=== PATIENT | male | born 1960 | race Caucasian/White ===

== ENCOUNTER 2023-06-21 06:18 | Day surgery (SDC) | payer BC, SELFPAY ==
[2023-06-21 06:55] VITALS: BMI 36.7
[2023-06-21 07:00] VITALS: BP 173/84
[2023-06-21 07:14] LABS: Glucose - Point of Care 249 mg/dl (70-99)
[2023-06-21 07:18] VITALS: BMI 36.7
[2023-06-21 09:01] VITALS: BP 139/78
[2023-06-21 09:14] LABS: Glucose - Point of Care 241 mg/dl (70-99)
[2023-06-21 09:15] VITALS: BP 153/83
[2023-06-21] MEDS: NOVOLOG vial 2 UNITS SC (09:24)
[2023-06-21 09:30] VITALS: BP 154/70
== END 2023-06-21 10:00 | disposition home or self-care (01) ==
LOC: SDS 06:18
PROVIDERS: ATTENDING PHYSICIAN Internal Medicine Gastroenterology; FAMILY PHYSICIAN Family Medicine
DX: C25.2 Malignant neoplasm of tail of pancreas (principal); K86.89 Other specified diseases of pancreas; R93.3 Abnormal findings on diagnostic imaging of other parts of digestive tract
CPT/HCPCS: 43238; 88172; 88173; 88305; 82962

== ENCOUNTER → 2023-06-26 17:23 | Outpatient (REF) | payer BC, SELFPAY | LOC: MRI 17:23 | PROVIDERS: ATTENDING PHYSICIAN Internal Medicine Hematology & Oncology; FAMILY PHYSICIAN Family Medicine | DX: K86.9 Disease of pancreas, unspecified (principal); N42.89 Other specified disorders of prostate | CPT/HCPCS: 74183; A9575 ==

== ENCOUNTER → 2023-07-09 07:20 | Outpatient (REF) | payer BC, SELFPAY ==
[2023-07-09 07:45] VITALS: BP 171/79; BP_SYST 78
[2023-07-09] MEDS: ANCEF 10 IV (08:26)
[2023-07-09 09:30] VITALS: BP 156/80
== END ==
LOC: RADI 07:20
PROVIDERS: ATTENDING PHYSICIAN Internal Medicine Hematology & Oncology; FAMILY PHYSICIAN Family Medicine
DX: C25.9 Malignant neoplasm of pancreas, unspecified (principal)
CPT/HCPCS: 36561; 76937; 77001; 99152; 99153; C1788

== ENCOUNTER 2023-07-29 17:22 | Emergency (ER) | payer BC, SELFPAY ==
[2023-07-29] VITALS (8 sets, daily range): BP systolic 144–172; BP diastolic 64–81; BMI 33.9
--- NOTE | 2023-07-29 17:55 | ED.GENMED ---
History of Present Illness
<Kathleen Toney PA-C - Last Filed: 07/31/23 10:54>
General
Chief Complaint: Chest Pain
Source: patient
Time Seen by Provider: 07/29/23 17:52
Nursing documentation reviewed up to this point in time: agreed with
Travel History
Have you had any contact with someone who has COVID-19?: No
Do you have any symptoms of coronavirus? Fever > 100 degrees, chills, cough, shortness of breath, sore throat, loss of taste or smell, muscle aches, or headache?: No
History of Present Illness
History of Present Illness:
63-year-old male with past medical history of pancreatic cancer on chemo, [id number] diabetes, hypertension presenting to emergency department today with concerns of chest discomfort and lower back pain that started this morning. Patient
states that patient was resting and relaxing all day today, and the pain came on randomly. Patient states that the pain waxes and wanes, is located in the epigastric area. The pain in his not positional, and not pleuritic. Patient states that he
is never had pain like this before. Patient states he gets some back pain from his pancreatic tumor but he states that this pain is different. Patient denies any falls. Patient denies any fevers or chills, recent surgeries, shortness of breath,
nausea or vomiting, urinary incontinence, dysuria, hematuria. Patient denies any dizziness, lightheadedness, palpitations. Patient has no cardiac history. Patient follows Dr. Otero with [facility] for his cancer treatment.
Past History
<Kathleen Toney PA-C - Last Filed: 07/31/23 10:54>
Past History
ED Past Medical History: HTN, Hypercholesterolemia and NIDDM
ED Past Surgical History: None
Social History
Tobacco: Non-smoker
Alcohol: None
Drug: None
Review of Systems
<Kathleen Toney PA-C - Last Filed: 07/31/23 10:54>
Review of Systems
All Other Systems: ROS reviewed and negative except as documented in HPI and ROS
Phy Exam
<Kathleen Toney PA-C - Last Filed: 07/31/23 10:54>
Physical Exam
Physical Exam:
General: Patient is well-appearing no acute distress
Skin: Warm and dry, no rashes or lesions
Head: normocephalic, atraumatic
Cardiac: Regular rate and rhythm, no murmurs. No tenderness palpation of the external chest wall. No crepitus.
Pulm: Normal respiratory effort, no wheezes, rales, rhonchi
Abdomen: No abdominal tenderness to palpation. No epigastric tenderness palpation. No organomegaly. No pulsatile abdominal mass.
Neuro: AAOx3, CN II-XII intact.
Scores
<MELVIN Rodrigues Last Filed: 07/31/23 10:54>
Heart Score for Chest Pain Patients
STEMI patient?: No
History: Slightly or Non-Suspicious
ECG: Normal
Age: >45 - <65 years
Risk Factors: 1 or 2 Risk Factors
Troponin: </= Normal Limit
Heart Score for Chest Pain Patients: 2
Heart Score Risk: 2.5% MACE over next 6 weeks
Course
<Kathleen Toney PA-C - Last Filed: 07/31/23 10:54>
Orders/Labs/Results
Orders:
Orders
07/29/23 17:24
EKG [Electrocardiogram (*1)] Urgent
Reason for Study: Chest Pain
EKG- Treatment ONCE
07/29/23 18:02
CR Chest - 2 Views Urgent
Comment:
Reason For Exam: chest pain
07/29/23 18:30
Add On- LAB Urgent
Tests Added?: lipase
07/29/23 18:34
CT Abd/pelvis W Iv Cont Urgent
Comment:
Reason For Exam: epigastric pain, known ca history
07/29/23 18:49
Complete Blood Count/With Diff Urgent
Comprehensive Metabolic Panel Urgent
Lipase Urgent
Troponin I Urgent
07/29/23 21:42
Troponin I Urgent
Abnormal Lab Results
07/29/23
18:49
WBC 16.6 H 10^3/uL
(4.8-10.8)
RBC 4.26 L 10^6/uL
(4.70-6.10)
Hgb 11.6 L g/dL
(13.0-18.0)
Hct 33.4 L %
(39.0-52.0)
MCV 78.4 L fL
(80.0-94.0)
Abs Immat Gran (auto) 1.3 H 10^3/uL
(0-0.05)
Absolute Neuts (auto) 11.2 H 10^3/uL
(1.4-6.5)
Absolute Monos (auto) 0.8 H 10^3/uL
(0.1-0.6)
Immature Gran % 7.8 H %
(0-0.5)
Lymphocytes % 18.1 L %
(20.5-51.1)
Glucose 116 H mg/dl
(70-99)
ALT 144 H U/L
(0-50)
Total Protein 6.2 L g/dl
(6.3-8.2)
Lipase 321 H U/L
(23-300)
07/29/23 18:49
07/29/23 18:49
Vital Signs
Initial and Last Documented VS:
Initial Vital Signs
Temp Pulse Resp BP Pulse Ox
98.2 F 92 16 144/80 99
07/29/23 17:25 07/29/23 17:25 07/29/23 17:25 07/29/23 17:25 07/29/23 17:25
Last Documented Vital Signs
Temp Pulse Resp BP Pulse Ox
98.2 F 88 22 172/67 97
07/29/23 17:25 07/29/23 22:30 07/29/23 22:30 07/29/23 22:00 07/29/23 22:30
<Neri Paul MD - Last Filed: 07/29/23 22:25>
Orders/Labs/Results
Orders:
Orders
07/29/23 17:24
EKG [Electrocardiogram (*1)] Urgent
Reason for Study: Chest Pain
EKG- Treatment ONCE
07/29/23 18:02
CR Chest - 2 Views Urgent
Comment:
Reason For Exam: chest pain
07/29/23 18:30
Add On- LAB Urgent
Tests Added?: lipase
07/29/23 18:34
CT Abd/pelvis W Iv Cont Urgent
Comment:
Reason For Exam: epigastric pain, known ca history
07/29/23 18:49
Complete Blood Count/With Diff Urgent
Comprehensive Metabolic Panel Urgent
Lipase Urgent
Troponin I Urgent
07/29/23 21:42
Troponin I Urgent
Abnormal Lab Results
07/29/23
18:49
WBC 16.6 H 10^3/uL
(4.8-10.8)
RBC 4.26 L 10^6/uL
(4.70-6.10)
Hgb 11.6 L g/dL
(13.0-18.0)
Hct 33.4 L %
(39.0-52.0)
MCV 78.4 L fL
(80.0-94.0)
Abs Immat Gran (auto) 1.3 H 10^3/uL
(0-0.05)
Absolute Neuts (auto) 11.2 H 10^3/uL
(1.4-6.5)
Absolute Monos (auto) 0.8 H 10^3/uL
(0.1-0.6)
Immature Gran % 7.8 H %
(0-0.5)
Lymphocytes % 18.1 L %
(20.5-51.1)
Glucose 116 H mg/dl
(70-99)
ALT 144 H U/L
(0-50)
Total Protein 6.2 L g/dl
(6.3-8.2)
Lipase 321 H U/L
(23-300)
07/29/23 18:49
07/29/23 18:49
Vital Signs
Initial and Last Documented VS:
Initial Vital Signs
Temp Pulse Resp BP Pulse Ox
98.2 F 92 16 144/80 99
07/29/23 17:25 07/29/23 17:25 07/29/23 17:25 07/29/23 17:25 07/29/23 17:25
Last Documented Vital Signs
Temp Pulse Resp BP Pulse Ox
98.2 F 88 22 172/67 97
07/29/23 17:25 07/29/23 22:30 07/29/23 22:30 07/29/23 22:00 07/29/23 22:30
<Kathleen Toney PA-C - Last Filed: 07/31/23 10:54>
MDM/Problems Addressed
Differential Diagnosis Includes:
Differentials include GERD, gastritis, ACS, aortic dissection, bony metastasis, musculoskeletal sprain/strain, pancreatitis, cholecystitis, symptomatic liver metastasis
MDM/Problems Addressed:
Epigastric pain
back pain
Chronic conditions affecting care: DM, HTN and Cancer
Acute Exacerbation and/or Progression of Chronic Illness: DM, HTN and Cancer
<Kathleen Toney PA-C - Last Filed: 07/31/23 10:54>
*Pulse Oximetry
Patient hypoxic: no
*Critical Care Note
Total Time (30-74mins, 75-104mins- exclusive of procedures): Not Applicable
Data Reviewed
Review of Other/Old Records Reveals: Records (reviewed ER physician documentation from 06/03/23, reviewed H+P from 07/09/23 with [facility])
ED Attending Note
<Kathleen Toney PA-C - Last Filed: 07/31/23 10:54>
-
Portions of this chart may have been created with voice recognition software.� Occasional wrong word or��sound alike� substitutions may have occurred due to the inherent limitations of voice recognition software.
<Neri Paul MD - Last Filed: 07/29/23 22:25>
ED Attending Note
Patient seen and examined by attending physician: Yes
ED Attending Note:
HPI: 63-year-old male with a past medical history of insulin-dependent diabetes, pancreatic cancer with metastasis to the liver who presents to the emergency department with his for evaluation of chest pains. Patient reports onset of symptoms
overnight and have been intermittent throughout the day today. He reports short bursts lasting for few minutes at a time of aching/burning pain in the substernal/epigastric region. Occasionally radiates towards the back. No clear triggering or
relieving factors noted. He says he has had somewhere between 5 and 10 episodes today. He reports some associated palpitations/sensation of his heart beating quite hard. He denies any shortness of breath. He denies any recent cough, fevers. He
denies any nausea, vomiting. No change in his bowel habits. He has been on chemotherapy he had his first round of chemotherapy this past week last infusion was Sunday. He is also on Neupogen for leukopenia.
ROS: Positive for chest pain/epigastric abdominal pain; negative for shortness of breath, cough, fevers, nausea, vomiting, diarrhea, constipation
Physical exam:
General: Awake, alert, oriented x3; no acute distress
Head: Normocephalic, atraumatic
Eyes: Conjunctiva normal, sclera anicteric
Throat: Airway intact, handling secretions
Neck: Trachea midline, supple without meningismus
Lungs: Clear to auscultation bilaterally, no wheezing, rales, rhonchi
Heart: Regular rate and rhythm, no murmurs, gallops, or rubs
Abd: Soft, non distended, nontender, no palpable masses
Neuro: Cranial nerves grossly intact, speech fluid
Skin: no rash
Extremities: No edema in extremities, equal pulses in all extremities
Differential diagnosis: GERD/esophagitis, esophageal spasm, pancreatitis, pain from pancreatic mass/liver metastasis, cholelithiasis, cholecystitis, ACS, pericarditis; PE considered less likely, dissection considered less likely
Medical decision makin-year-old male with recently diagnosed pancreatic cancer metastatic to the liver currently on chemotherapy (follows with Dr. Otero for oncology) presents for evaluation of intermittent chest pains over the past 24 hours
or so. Nonexertional�no clear trigger noted. Vital signs are normal. Exam as above. EKG shows no STEMI. Will place an IV send labs including a CBC and a CMP, troponin, lipase. Will check chest x-ray. Will send for CT of the abdomen pelvis.
Will monitor closely reassess after the above.
Chronic conditions affecting care: Metastatic pancreatic cancer
Acute exacerbation or progression of chronic illness: N/A
History source: Patient, spouse, medical records
Data reviewed: Prior records, prior labs, prior imaging
Medications/testing considered: N/A
Social determinants of health: N/A
Discussion with other providers: N/A
UPDATE:
Labs reviewed CBC shows slight leukocytosis to 16.6 in the setting of recent Neupogen. CMP shows marginally elevated ALT no other clinically significant abnormalities. Serial troponins are negative. Lipase marginally elevated at 321. Chest x-ray
no acute disease. CT shows slightly enlarged pancreatic mass and some adjacent inflammation consistent with mild pancreatitis. Suspect this is likely cause of his symptoms. Fortunately he has not had a lot of nausea and vomiting and his pain is
quite mild. I offered admission for monitoring, pain control as needed but patient says that he feels comfortable going home. Advised to do a liquid diet for the next 48 hours and progress diet from there. Advised to avoid fatty foods. He will
follow-up with his oncologist and his primary doctor. Spoke about return precautions all questions answered.
Discharge Plan
Departure
Patient Disposition: Home (Routine Discharge)
Date of Disposition: 07/29/23
Time of Disposition: 22:24
Patient with high blood pressure during this ER visit?: Yes
Discharge Problem:
Pancreatitis, Chest pain
Instructions: Pancreatitis (DC), Chest Pain PCP Follow Up
Prescriptions:
No Action
metformin 1,000 mg Tablet
1,000 mg PO BID
rosuvastatin 10 mg Tablet
10 mg PO HS
Januvia 100 mg Tablet
100 mg PO DAILY
Lumigan 0.01 % Drops
1 drp BOTH EYES QPM
lisinopril 20 mg Tablet
20 mg PO HS
glimepiride 2 mg Tablet
2 mg PO DAILY
glimepiride 1 mg Tablet
1 mg PO DAILY
Referrals:
Gagandeep Otero MD [Active] - Call in 1-3 days for appt
Lorrie Hameed MD [Family Provider] - Call in 1-3 days for appt
Activity Restrictions/Additional Instructions:
Thank you for visiting the Emergency Department at [facility].
1. Please schedule a follow up appointment as directed. Call first thing tomorrow morning to make an appointment.
2. If indicated, please take your medications as instructed and indicated on discharge paperwork.
3. If any of your symptoms do not improve, or persist, or become more severe within 6-12 hours, please return to the emergency department for further care.
4. Please return to the emergency department if you develop a headache, neck pain/stiffness, fever greater than 100.4F, chest pain, shortness of breath, persistent nausea, vomiting, slurred speech, difficulty walking, numbness/tingling, weakness,
signs of infection or any other symptoms that are worrisome to you.
Please call [phone] if you have any questions.
Interventions
Interventions:
*Risk Screen - Suicide Last Done: 07/29/23 17:26
*General Assessment Last Done: 07/29/23 22:44
*Neglect/Abuse Screening Last Done: 07/29/23 17:35
ED- Fall Risk Assessment Last Done: 07/29/23 22:44
*ED COVID-19 Vaccine History Last Done: 07/29/23 17:25
*Nursing Disposition Last Done: 07/29/23 22:44
ED- Cardiac Assessment Last Done: 07/29/23 17:47
Discharge Date and Time
Discharge Date/Time: 07/29/23 22:58
[2023-07-29 18:58] LABS: % Basophils 0.2 % (0-2); % Eosinophils 1.5 % (0-6); % Immature Granulocytes 7.8 % (0-0.5); % Lymphocytes 18.1 % (20.5-51.1); % Neutrophils 67.4 % (42.2-75.2); Absolute Eosinophils 0.3 10^3/uL (0-0.7); Absolute Immature Granulocytes 1.3 10^3/uL (0-0.05); Absolute Monocytes 0.8 10^3/uL (0.1-0.6); Absolute Neutrophils 11.2 10^3/uL (1.4-6.5); Hematocrit 33.4 % (39.0-52.0); Hemoglobin 11.6 g/dL (13.0-18.0); Mean Corp Hgb Conc. 34.7 g/dL (33.0-37.0); Mean Corpuscular Hgb 27.2 pg (27.0-31.0); Mean Corpuscular Volume 78.4 fL (80.0-94.0); Mean Platelet Volume 9.9 fL (7.4-10.4); Nucleated Red Blood Cells % 0 % (-); Platelet Count 213 10^3/uL (130-400); Red Blood Cell Count 4.26 10^6/uL (4.70-6.10); Red Cell Dist. Width 13.1 % (11.5-14.5); White Blood Cell Count 16.6 10^3/uL (4.8-10.8)
[2023-07-29 19:12] LABS: ALT (SGPT) 144 U/L (0-50); AST (SGOT) 47 U/L (17-59); Albumin 3.8 g/dl (3.5-5.0); Alkaline Phosphatase 105 U/L (38-126); Blood Urea Nitrogen 17 mg/dl (9-20); Calcium 9.2 mg/dl (8.4-10.2); Carbon Dioxide 26 mmol/L (22-30); Chloride 102 mmol/L (98-107); Estimated Creatinine Clearance > 125 ml/min; Glucose 116 mg/dl (70-99); Lipase 321 U/L (23-300); Potassium 3.6 mmol/L (3.5-5.1); Sodium 135 mmol/L (135-145); Total Bilirubin 0.7 mg/dl (0.2-1.3); Total Protein 6.2 g/dl (6.3-8.2); eGFR > 60.00
[2023-07-29 19:21] LABS: Troponin I < 0.012 ng/ml
[2023-07-29 22:10] LABS: Troponin I < 0.012 ng/ml
== END 2023-07-29 22:58 | disposition home or self-care (01) ==
LOC: EMR 17:22
PROVIDERS: EMERGENCY PHYSICIAN Emergency Medicine; FAMILY PHYSICIAN Family Medicine
DX: K85.90 Acute pancreatitis without necrosis or infection, unspecified (principal); R07.9 Chest pain, unspecified; E11.8 Type 2 diabetes mellitus with unspecified complications; I10 Essential (primary) hypertension; C25.9 Malignant neoplasm of pancreas, unspecified; C78.7 Secondary malignant neoplasm of liver and intrahepatic bile duct
CPT/HCPCS: 99285; 71046; 74177; 80053; 83690; 84484; 85025; 93005; Q9967

== ENCOUNTER → 2023-10-30 10:38 | Outpatient (REF) | payer BC, SELFPAY ==
--- NOTE | 2023-10-30 13:24 | W.PN.UPDATE ---
Update Note
Progress Note Update
63 yo male presents for port site check. He noticed some erythema and drainage from the medial portion of the venotomy incision. He has no pain, fever or chills.
On exam there is some mild erythema over the venotomy. The incision has a pinhole area of dehisence on the most medial portion of the incision. It is non tender to palpation. No drainage from the site. No warmth or fluctuance
A/P: Port site check
Erythema noted around the venotomy. NO purulent drainage noted today. No tenderness or warmth to palpation
Prescibed Keflex 500 mg PO TID x 5 day and site check in 1 week
== END ==
LOC: RADI 10:38
PROVIDERS: ATTENDING PHYSICIAN Internal Medicine Hematology & Oncology; FAMILY PHYSICIAN Family Medicine
DX: Z45.2 Encounter for adjustment and management of vascular access device (principal)

== ENCOUNTER 2024-04-19 09:54 | Emergency (ER) | payer BC, SELFPAY ==
[2024-04-19] VITALS (9 sets, daily range): BP systolic 135–162; BP diastolic 67–87; BMI 29.2
--- NOTE | 2024-04-19 10:40 | EDRN ---
Judith MORENO in room w/pt at this time.
[2024-04-19 11:14] LABS: % Basophils 0.4 % (0-2); % Eosinophils 0.1 % (0-6); % Immature Granulocytes 0.4 % (0-0.5); % Lymphocytes 7.5 % (20.5-51.1); % Monocytes 9.7 % (1.7-9.3); % Neutrophils 81.9 % (42.2-75.2); Absolute Basophils 0.1 10^3/uL (0-0.2); Absolute Immature Granulocytes 0.1 10^3/uL (0-0.05); Absolute Lymphocytes 1.2 10^3/uL (1.2-3.4); Absolute Monocytes 1.6 10^3/uL (0.1-0.6); Absolute Neutrophils 13.1 10^3/uL (1.4-6.5); Hemoglobin 10.4 g/dL (13.0-18.0); Mean Corp Hgb Conc. 31.5 g/dL (33.0-37.0); Mean Corpuscular Volume 85.7 fL (80.0-94.0); Mean Platelet Volume 9.6 fL (7.4-10.4); Nucleated Red Blood Cells % 0 % (-); Platelet Count 362 10^3/uL (130-400); Red Blood Cell Count 3.85 10^6/uL (4.70-6.10); Red Cell Dist. Width 12.9 % (11.5-14.5)
[2024-04-19 11:29] LABS: ALT (SGPT) 22 U/L (0-50); AST (SGOT) 22 U/L (17-59); Albumin 3.3 g/dl (3.5-5.0); Alkaline Phosphatase 108 U/L (38-126); Blood Urea Nitrogen 19 mg/dl (9-20); Carbon Dioxide 30 mmol/L (22-30); Chloride 97 mmol/L (98-107); Estimated Creatinine Clearance 120 ml/min; Glucose 259 mg/dl (70-99); Lipase 123 U/L (23-300); Potassium 4.7 mmol/L (3.5-5.1); Sodium 138 mmol/L (135-145); Total Bilirubin 0.4 mg/dl (0.2-1.3); Total Protein 5.9 g/dl (6.3-8.2); eGFR > 60.00
[2024-04-19 11:31] LABS: COVID-19 Antigen Negative (Negative)
[2024-04-19 11:39] LABS: Troponin I < 0.012 ng/ml
--- NOTE | 2024-04-19 11:41 | ED.GENMED ---
History of Present Illness
General
Chief Complaint: Chest Problem
Source: patient
Exam Limitations: none
Time Seen by Provider: 04/19/24 10:19
Nursing documentation reviewed up to this point in time: agreed with
History of Present Illness
History of Present Illness:
64-year-old male with a history of stage IV pancreatic cancer with mets to the liver, just recently stopped chemo after recurrence in his liver
Here with right sided pleuritic chest pain/right upper quadrant pain for the past 2 days. Patient says that he was coughing last week and bent over as he was coughing and felt some pain in his left lower back. That has been going on for the last
week where he has pain with changing positions but did not have any pain with breathing. He cannot recall coughing just before this right lower chest pain started but ever since it began yesterday he cannot take a deep breath. He has not had a
worsening cough or ongoing cough, there is no productive sputum. He is not having a fever but felt some chills and fatigue over the last week as well. He does have some chronic anemia that is mild. He denies any exertional shortness of breath,
leg swelling, syncope, black stool, vomiting, diarrhea. Patient says he knows that the recurrence is in his right upper quadrant and is not sure if maybe the tumor is causing him some pain. He is not aware of any bony mets. He has never had a DVT
or PE
Past History
Past History
ED Past Medical History: HTN, Hypercholesterolemia and NIDDM
ED Past Surgical History: None
Social History
Tobacco: Non-smoker
Alcohol: None
Drug: None
Review of Systems
Review of Systems
Allergies reviewed?: Yes
All Other Systems: Not applicable
Phy Exam
Physical Exam
Physical Exam:
GENERAL: Alert , in no apparent distress
EYE: pupils equal and reactive
NECK: Supple
ENT: o/p clr, mmm.
CARDIAC: Regular rate and rhythm .
LUNGS: Patient is splinting on inspiration with pain on his right side, diminished breath sounds in the right base but breath sounds are present
No cough, no tachypnea
chest wall: no reproducible tennderness; pain with breahting only
RUQ nontender
L back mild tenderness lumbar; able to mve around, no rashes
ABDOMEN: Soft, without focal tenderness, no r/g, no cvat, normal bowel sounds
NEUROLOGICAL: Alert and oriented, no focal neuro deficits
SKIN: Warm and dry, skin intact. Pale
MUSCULOSKELETAL: No edema, well perfused. neg tomas's sign
PSYCH: Normal and appropriate interaction.
Course
Orders/Labs/Results
Orders:
Orders
04/19/24 09:56
EKG [Electrocardiogram (*1)] Urgent
Reason for Study: Chest Pain
EKG- Treatment ONCE
04/19/24 10:39
Cardiac Monitoring- Treatment ONCE
IV Insert/Care/Rem.- Treatment PRN
04/19/24 10:47
CR Chest - 2 Views Urgent
Comment:
Reason For Exam: chest pain R lower lung
04/19/24 11:02
COVID-19 Antigen Urgent
Source: Nasal Swab
Complete Blood Count/With Diff Urgent
Comprehensive Metabolic Panel Urgent
Lipase Urgent
Troponin I Urgent
Influenza A+B Rapid Molecular Urgent
ABELINO Source: Nasal Swab
Specimen Description:
04/19/24 11:45
CT Pe/abd/pel W Urgent
Reason For Exam: plejuritic R sided chest pain, h/o pancreatic canc
04/19/24 14:25
Apixaban [Eliquis] 5 mg PO NOW STA
Abnormal Lab Results
04/19/24
11:02
WBC 16.0 H 10^3/uL
(4.8-10.8)
RBC 3.85 L 10^6/uL
(4.70-6.10)
Hgb 10.4 L g/dL
(13.0-18.0)
Hct 33.0 L %
(39.0-52.0)
MCHC 31.5 L g/dL
(33.0-37.0)
Abs Immat Gran (auto) 0.1 H 10^3/uL
(0-0.05)
Absolute Neuts (auto) 13.1 H 10^3/uL
(1.4-6.5)
Absolute Monos (auto) 1.6 H 10^3/uL
(0.1-0.6)
Neutrophils % 81.9 H %
(42.2-75.2)
Lymphocytes % 7.5 L %
(20.5-51.1)
Monocytes % 9.7 H %
(1.7-9.3)
Chloride 97 L mmol/L
(98-107)
Glucose 259 H mg/dl
(70-99)
Total Protein 5.9 L g/dl
(6.3-8.2)
Albumin 3.3 L g/dl
(3.5-5.0)
04/19/24 11:02
04/19/24 11:02
Vital Signs
Initial and Last Documented VS:
Initial Vital Signs
Temp Pulse Resp BP Pulse Ox
36.9 C 99 16 135/67 99
04/19/24 09:55 04/19/24 09:55 04/19/24 09:55 04/19/24 09:55 04/19/24 09:55
Last Documented Vital Signs
Temp Pulse Resp BP Pulse Ox
36.9 C 86 31 157/78 97
04/19/24 09:55 04/19/24 15:00 04/19/24 15:00 04/19/24 15:00 04/19/24 15:00
MDM/Problems Addressed
Differential Diagnosis Includes:
PE, pleural effusion, pna, rib fx, mestatic disease, msk pain
MDM/Problems Addressed:
lenin leblanc who is 64 with metastatic stage IV pancreatic cancer with mets to liver; he stopped treatment after this last pet scan last month showing the liver mets increased
bent over and coughed last week and had back pain L side, thought it was just from pulled muscles; maybe totally unrelated; but then the past 2 days splinting pain R lower chest/upper abd so that's what brought him in; his work up here is stable
leukocytosis, neg cxr, and PE study shows no PE, the newish lesions in theliver; but then this spot 3 cm hypoattenuation in the spleen that could be metastatic dz vs infarct
he has no obvious contraindications for AC; but he doesn't want to stay in the hospital;
i would think if it were metstatic dz it would have lit up on the PET scan a few weeks ago
i d/w dr. corado from vascular
and ed attneidng dr beltran who recommended AC (no known contraindications) and f/u otupatient
i did ask whetehr pt should have MR of abdomen to further identify the spleen area before starting AC but dr. corado did not feel strongly
i made pt's oncologist dr. restrepo aware
*Critical Care Note
Total Time (30-74mins, 75-104mins- exclusive of procedures): Not Applicable
ED Attending Note
-
Portions of this chart may have been created with voice recognition software.� Occasional wrong word or��sound alike� substitutions may have occurred due to the inherent limitations of voice recognition software.
Discharge Plan
Departure
Patient Disposition: Home (Routine Discharge)
Date of Disposition: 04/19/24
Time of Disposition: 14:35
Patient with high blood pressure during this ER visit?: No
Condition: Fair
Covid-19: Not Applicable
Discharge Problem:
Chest pain, pleuritic, Back pain, Splenic infarct
Instructions: Pleuritic Chest Pain (DC)
Prescriptions:
New
Eliquis 5 mg tablet
5 mg PO BID Qty: 60 0RF
No Action
metformin 1,000 mg Tablet
1,000 mg PO BID
rosuvastatin 10 mg Tablet
10 mg PO HS
Januvia 100 mg Tablet
100 mg PO DAILY
Lumigan 0.01 % Drops
1 drp BOTH EYES QPM
lisinopril 20 mg Tablet
20 mg PO HS
glimepiride 2 mg Tablet
2 mg PO DAILY
glimepiride 1 mg Tablet
1 mg PO DAILY
Referrals:
Carter Corado MD [Active] - Follow up in 5-7 days (VASCULAR)
Lorrie Hameed MD [Family Provider] -
Activity Restrictions/Additional Instructions:
YOUR CAT SCAN SHOWS NO FINDINGS ON THE R SIDE OTHER THAN YOUR LIVER METS - SO WE ARE NOT SURE THE CAUSEO FYOUR PAIN
BUT THIS COULD JUST BE MUSCULOSKELETAL
YOUR BACK PAIN COULD POSSIBLY BE THIS SPOT ON YOUR SPLEEN, CALLED SPLENIC INFARCT
I SPOKE WITH VASCULAR SURGEON WHO SAID WE COULD START BLOOD THINNERS
PLEASE FOLLOW UP OUTPATIENT
TAKE ELIQUIS TWICE A DAY. CALL THE VASCULAR DOCTORS, YOU MAY NEED MORE TESTING TO EVALUATE THIS
IF YOU SPONTANEOUSLY START BLEEDING THAT YOU CANNOT CONTROL, RETURN
AVOID FALLING IF POSSIBLE AND IF YOU STRIKE YOUR HEAD, RETURN
OTHERWISE SEE YOUR ONCOLOGIST PLANNED
IF YOU HAVE WORSE PAIN, TROUBLE BREATHING THAT IS WORSENING, ETC RETURN.
Interventions
Interventions:
*Risk Screen - Suicide Last Done: 04/19/24 09:55
*General Assessment Last Done: 04/19/24 09:55
*Neglect/Abuse Screening Last Done: 04/19/24 09:55
ED- Fall Risk Assessment Last Done: 04/19/24 11:08
*ED COVID-19 Vaccine History Last Done: 04/19/24 09:55
*Nursing Disposition Last Done: 11/30/24 15:25
ED- Cardiac Assessment Last Done: 04/19/24 11:08
ED- Pulmonary Assessment Last Done: 04/19/24 11:08
Discharge Date and Time
Discharge Date/Time: 04/19/24 15:25
Print Language: ITALIAN
--- NOTE | 2024-04-19 13:37 | EDRN ---
Pt OOB at this time to BR.
--- NOTE | 2024-04-19 14:43 | EDRN ---
Discharge on hold at this time.
[2024-04-19] MEDS: ELIQUIS 5 MG PO (15:02)
== END 2024-04-19 15:25 | disposition home or self-care (01) ==
LOC: EMR 09:54
PROVIDERS: Physician Assistant; EMERGENCY PHYSICIAN Emergency Medicine; FAMILY PHYSICIAN Family Medicine; REFERRING PHYSICIAN Internal Medicine Hematology & Oncology
DX: R07.81 Pleurodynia (principal); R10.10 Upper abdominal pain, unspecified; M54.50 Low back pain, unspecified; D73.5 Infarction of spleen; Z11.52 Encounter for screening for COVID-19; C25.9 Malignant neoplasm of pancreas, unspecified; C78.7 Secondary malignant neoplasm of liver and intrahepatic bile duct; I10 Essential (primary) hypertension; E11.9 Type 2 diabetes mellitus without complications; E78.00 Pure hypercholesterolemia, unspecified; D64.9 Anemia, unspecified; Z92.21 Personal history of antineoplastic chemotherapy; Z79.84 Long term (current) use of oral hypoglycemic drugs
CPT/HCPCS: 99285; 71046; 71275; 74177; 80053; 83690; 84484; 85025; 87502; 87811; 93005; Q9967